=== PATIENT | male | born 1965 | race Two or more races ===

== ENCOUNTER → 2017-02-26 | Outpatient (CLI) | payer OTHER ==
--- NOTE | 2017-02-28 07:22 | REP ---
Left foot four views : There is no fracture or dislocation. Mineralization and joint spaces are normal. There are no calcifications or foreign bodies. Impression: Negative left foot . Signed by Zackery Goddard MD 02/26/2017 12:58 P
== END ==
LOC: M LRY 12:42
PROVIDERS: ATTEND Nurse Practitioner Family
DX: M79.675 Pain in left toe(s) (principal)
CPT/HCPCS: 73630; G0463